=== PATIENT | male | born 1955 | race Caucasian/White ===

== ENCOUNTER 2020-04-28 17:34 | Outpatient (CLI) | payer MEDICARE, SELFPAY ==
--- NOTE | ~2020-04-28 | US_ITS ---
EXAMINATION: US venous doppler LE RT DATE: 04/28/2020 18:37 INDICATION: Right lower limb swelling TECHNIQUE: Tam scale images without and with compression and Doppler images of the right lower extre mity veins were obtained. COMPARISON: None FINDINGS: The right common femoral vein, profunda femoral vein, femoral vein, popliteal vein, peronea l trunk, and posterior tibial veins are patent. There is superficial thrombosis in the greater saphen ous vein. IMPRESSION: 1. No evidence of deep venous thrombosis. Superficial thrombosis in the greater saphenous vein. Reviewed, dictated and finalized at location A. ATION COORDINATOR
[2020-04-28 18:13] LABS: Hematocrit 43.7 % (42.0-52.0); Hemoglobin 14.6 g/dL (14.0-18.0); Mean Corpuscular HGB Conc 33.4 g/dl (32-36); Mean Corpuscular Hemoglobin 28.7 pg (26-34); Mean Platelet Volume 10.7 fl (7.4-10.4); Platelet Count Result 154 k/mm3 (150-375); Red Blood Count 5.08 M/mm3 (4.6-6.20); Red Cell Distribution Width 13.8 % (11.5-14.5); White Blood Count 6.7 K/mm3 (4.5-10.0)
[2020-04-28 18:25] LABS: Alanine Aminotransferase 29 U/L (4-50); Albumin Level 4.7 g/dL (3.5-5.1); Alkaline Phosphatase 92 U/L (38-126); Anion Gap 9 mmol/L (8-16); Aspartate Amino Transferase 36 U/L (17-59); Bilirubin,Total 0.4 mg/dL (0.2-1.3); Blood Urea Nitrogen 20 mg/dL (9-20); Calcium 9.9 mg/dL (8.4-10.2); Carbon Dioxide 26 mmol/L (22-30); Chloride 103 mmol/L (98-107); Estimated Glomerular Filt Rate > 60; Glucose 96 mg/dL (75-110); Potassium 4.3 mmol/L (3.4-5.0); Sodium 138 mmol/L (137-145)
[2020-04-28 18:31] LABS: D Dimer 1.27 ug/mL (<0.48)
== END 2020-04-28 17:35 | disposition home or self-care (01) ==
PROVIDERS: PCP Internal Medicine; Visit Provider Internal Medicine
DX: R22.41 Localized swelling, mass and lump, right lower limb (principal)
CPT/HCPCS: 36415; 80053; 85027; 85380; 87040; 93971

== ENCOUNTER 2020-04-28 19:16 | Emergency (ER) | payer MEDICARE, SELFPAY ==
[2020-04-28 19:23] VITALS: BP 147/87; PULSE 72; RESP 18; TEMP 35.8; O2SAT 100
--- NOTE | 2020-04-28 20:37 | ED.GENADULT ---
HPI - General Adult General Chief complaint: Extremity Injury, Lower Stated complaint: rt leg pain and imaging sent here by ct/pcp Time Seen by Provider: 04/28/20 20:08 Source: patient History of Present Illness HPI narrative: Patient is a 64 y/o male complaining of right lower leg pain starting 2 days ago. He describes his pain as thumb tacks and rates it as 3/10. He states that pain is worse with he lowers his leg. There is no pain radiation. He has no chest pain or SOB. He was seen by Dr. Richards earlier today. He had doppler done which showed super vein thrombosis of greater saphenous vein. He was directed to ED to receive a Lovenox shot by Dr. Richards. He had already received Rx for antibiotics from Dr. Richards and he has appointment to see Dr. Richards again at 8:00 AM tomorrow. Related Data Home Medications Medication Instructions Recorded Confirmed amoxicillin-pot clavulanate tablet 04/28/20 cetirizine 20 mg PO DAILY 04/28/20 coenzyme Q10 [Co Q-10] 10 mg PO ONCE 04/28/20 levofloxacin 04/28/20 Allergies Allergy/AdvReac Type Severity Reaction Status Date / Time No Known Allergies Allergy Verified 04/28/20 19:29 Review of Systems Constitutional: Constitutional: Denies chills, Denies fever(s), Denies headache(s) and Denies weakness Eyes: Eyes: Denies blurry vision ENT: Denies headache(s) and Denies neck pain Cardiovascular: Cardiovascular: Denies chest pain and Denies dyspnea Respiratory: Respiratory: Denies cough and Denies dyspnea Gastrointestinal: Gastrointestinal: Denies abdominal pain, Denies diarrhea, Denies nausea and Denies vomiting Genitourinary: Genitourinary: Denies hematuria and Denies dysuria Musculoskeletal: Musculoskeletal: Reports as per HPI, Denies back pain, Denies neck pain and Reports other (right leg pain) Neurologic: Denies headache(s) and Denies weakness [facility] Social History Social History Gender identity (if verbalized by the patient): Male Exam Const: General: no acute distress and well developed Orientation/consciousness: oriented to person, oriented to place, oriented to time and patient oriented x3 HENMT: Head: normocephalic Ears: external ears normal General nose exam: Normal external nose present Eyes: General: appearance normal, both eyes and all related structures Conjunctivae: conjunctivae normal Neck: Neck: normal visual inspection and full ROM Chest: Chest palpation & inspection: normal inspection of the chest and no tenderness Resp: Effort & Inspection: normal respiratory effort Auscultation: clear to auscultation bilaterally Cardio: Rate: regular rate Rhythm: regular rhythm GI: GI Palp: No abdominal tenderness and Yes Soft to palpation Skin: General skin exam: turgor normal and erythema (right lower leg) Neuro: General: oriented to person, oriented to place, oriented to time and patient oriented x3 Cognition (Neuro): normal cognition Extrem: General: normal to inspection, full ROM and no pedal edema Right lower extremity: edema and lower leg Details: erythema Psych: Appearance: grossly normal Mental Status: mental status grossly normal Affect: normal affect Course Vital Signs Vital signs: Vital Signs Temperature 35.8 C L 04/28/20 19:23 Pulse Rate 72 04/28/20 19:23 Respiratory Rate 18 04/28/20 19:23 Blood Pressure 147/87 H 04/28/20 19:23 Pulse Oximetry 100 04/28/20 19:23 Temperature 35.8 C L 04/28/20 19:23 Pulse Rate 72 04/28/20 21:08 Respiratory Rate 16 04/28/20 21:08 Blood Pressure 138/76 04/28/20 21:08 Pulse Oximetry 94 04/28/20 21:08 Medical Decision Making Vital Signs Vital Signs: Vital Signs Temperature 35.8 C L 04/28/20 19:23 Pulse Rate 72 04/28/20 19:23 Respiratory Rate 18 04/28/20 19:23 Blood Pressure 147/87 H 04/28/20 19:23 Pulse Oximetry 100 04/28/20 19:23 Temperature 35.8 C L 04/28/20 19:23 Pulse Rate 72 04/28/20
[2020-04-28] MEDS: ENOXAPARIN 40 MG/0.4 ML SYRINGE SUB-Q (21:00)
[2020-04-28 21:08] VITALS: BP 138/76; PULSE 72; RESP 16; O2SAT 94
== END 2020-04-28 21:10 | disposition home or self-care (01) ==
PROVIDERS: Emergency Provider Emergency Medicine; PCP Internal Medicine
DX: I82.811 Embolism and thrombosis of superficial veins of right lower extremity (principal)
CPT/HCPCS: 36415; 80053; 85027; 85380; 87040; 93971; 99283; J1650

== ENCOUNTER 2020-11-12 08:26 | Outpatient (CLI) | payer MEDICARE, SELFPAY ==
--- NOTE | ~2020-11-12 | MR_ITS ---
EXAMINATION: MR IAC wo/w con EXAM DATE: 11/12/2020 10:22 INDICATION: H91.92 - Unspecified hearing loss, left ear. TECHNIQUE: Multi-sequential, multiplanar MR images of the brain, brainstem, internal auditory canals were obtained without contrast. Whole brain sagittal T1, axial diffusion, gradient echo (T2*), T1, T 2, FLAIR sequences obtained. High resolution coronal 3-D FIESTA, coronal T1 FSE, axial T1 FSPGR of t he internal auditory canals. Patient was then injected with 20 cc Multihance contrast intravenously. Postcontrast axial and coronal T1 weighted whole brain, axial and coronal high resolution T1 IAC seq uences obtained. There is no prior study for comparison. FINDINGS: No evidence of mastoid or middle ear opacification. The 7th/8th cranial nerve complexes a re symmetric, normal in course and caliber. No cerebellopontine angle masses. Posterior fossa unrem arkable. Mild microangiopathy and sulcal prominence, atrophy. There is a left-sided choroidal fissure cyst. Th ere are no areas of restricted diffusion to suggest acute infarction. There is no acute hemorrhage s een on the T2*, a hemosiderin sensitive sequence. No intraparenchymal brain mass. The ventricles are normal in size. There are no extra-axial collections. Flow voids are seen in the cerebral arteries on the T2-weighted sequences consistent with their expected patency. The orbits are unremarkable. Soft tissue is unremarkable. IMPRESSION: 1. Unremarkable brain/IAC MRI examination. Reviewed, dictated and finalized at location B.
[2020-11-12 09:20] LABS: Estimated Glomerular Filt Rate > 60
== END 2020-11-12 08:27 | disposition home or self-care (01) ==
LOC: ANHIMG 08:30
PROVIDERS: PCP Internal Medicine; Visit Provider Otolaryngology
DX: H91.92 Unspecified hearing loss, left ear (principal); H93.12 Tinnitus, left ear; H91.8X9 Other specified hearing loss, unspecified ear
CPT/HCPCS: 70553; A9577

== ENCOUNTER 2023-03-02 16:29 | Outpatient (CLI) | payer MEDICARE, SELFPAY ==
--- NOTE | ~2023-03-02 | XR_ITS ---
EXAMINATION: XR chest 2V DATE: 03/02/2023 16:57 INDICATION: Cough. Diarrhea. TECHNIQUE: Frontal and lateral views of the chest were obtained on 3 radiographs. COMPARISON: Chest 2 views 10/11/2012 FINDINGS: There is mild scarring in left lower lung zone. No pleural effusion or pneumothorax. The he art size is normal. IMPRESSION: 1. Mild scarring in left lower lung zone. Reviewed, dictated and finalized at location E. ER SOFTWARE ENGINEER
[2023-03-02 16:53] LABS: Basophils Absolute Auto 0.03 K/mm3 (0.00-0.10); Basophils Percent Auto 0.5 % (0.0-1.0); Eosinophils Absolute Auto 0.15 K/mm3 (0.02-0.50); Eosinophils Percent Auto 2.4 % (1.0-6.0); Hematocrit 42.7 % (37.0-46.0); Immature Granulocyte Absolute 0.02 K/mm3 (0.00-0.00); Immature Granulocyte Percent A 0.3 % (0.0-0.0); Lymphocytes Absolute Auto 1.74 K/mm3 (1.10-4.50); Lymphocytes Percent Auto 27.8 % (18.0-42.0); Mean Corpuscular HGB Conc 32.8 g/dL (32.0-36.0); Mean Corpuscular Hemoglobin 29.9 pg (27.0-31.0); Mean Platelet Volume 10.7 fl (8.7-11.0); Monocytes Absolute Auto 0.56 K/mm3 (0.10-0.90); Monocytes Percent Auto 8.9 % (2.0-11.0); Neutrophils Absolute Auto 3.8 K/mm3 (1.7-7.2); Neutrophils Percent Auto 60.1 % (50.0-70.0); Platelet Count Result 151 K/mm3 (150-420); Red Blood Count 4.69 M/mm3 (4.70-6.10); White Blood Count 6.3 K/mm3 (4.8-10.8)
[2023-03-02 17:45] LABS: Alanine Aminotransferase 36 U/L (16-63); Alkaline Phosphatase 108 U/L (46-116); Anion Gap 9 mmol/L (8-16); Aspartate Amino Transferase 24 U/L (15-37); Bilirubin,Total 0.5 mg/dL (0.00-1.00); Blood Urea Nitrogen 20 mg/dL (7-18); Calcium 9.3 mg/dL (8.5-10.1); Carbon Dioxide 30 mmol/L (21-32); Chloride 99 mmol/L (98-108); Estimated Glomerular Filt Rate > 60; Free T3 2.75 pg/mL (2.18-3.98); Free T4 Free Thyroxine 0.94 ng/dL (0.76-1.46); Glucose 86 mg/dL (70-99); Osmolality Calculated 287 mOsm/kg (285-295); Potassium 4.2 mmol/L (3.5-5.1); Sodium 138 mmol/L (136-145); Thyroid Stimulating Hormone 3.33 uIU/mL (0.36-3.74); Total Protein 6.8 g/dL (6.4-8.2)
[2023-03-02 18:02] LABS: Erythrocyte Sedimentation Rate 18 mm/hr (0-20)
[2023-03-04 12:32] LABS: Immunoglobulin A 134 mg/dL (70-320); TTG IGA AB <1.0 U/mL (<15.0)
== END 2023-03-02 16:30 | disposition home or self-care (01) ==
LOC: CHSLAB 16:30
PROVIDERS: PCP Internal Medicine; Visit Provider Internal Medicine
DX: R05.9 Cough, unspecified (principal); R19.7 Diarrhea, unspecified; R91.8 Other nonspecific abnormal finding of lung field
CPT/HCPCS: 36415; 71046; 80053; 82784; 83516; 84439; 84443; 84481; 85025; 85652

== ENCOUNTER 2023-03-03 11:06 | Outpatient (CLI) | payer MEDICARE, SELFPAY ==
[2023-03-07 06:18] LABS: Fecal Fat, Ql Normal (Normal)
== END 2023-03-03 11:07 | disposition home or self-care (01) ==
PROVIDERS: PCP Internal Medicine; Visit Provider Internal Medicine
DX: R19.7 Diarrhea, unspecified (principal); R05.9 Cough, unspecified
CPT/HCPCS: 82705; 87045; 87177; 87209; 87324; 87427; 87449

== ENCOUNTER 2024-05-01 14:04 | Outpatient (CLI) | payer MEDICARE, SELFPAY ==
--- NOTE | ~2024-05-01 | XR_ITS ---
XR elbow LT min 3V Ordering provider: Pablo Richards MD History: . L Elbow Swelling . Comparison: None. FINDINGS: BONES: No acute fracture or dislocation. Ossification near to the medial and lateral humeral condyles which may be ligamentous ossification. JOINT SPACES: Normal. SOFT TISSUES: Normal. No definite joint effusion. IMPRESSION: No acute osseous abnormality left elbow. Reviewed, dictated and finalized at location A. PROCESSING SCIENTIST
--- OUTSIDE RECORDS SUMMARY | 2024-05-01 16:22 | XMS_ITS | Clinical Summary ---
Author Organization [facility] [address] Address [address] [place] [id number] Care Team Providers Care Aerodynamics Professor Name Role Phone Pablo Richards MD Primary Care Provider [phone] Allergies No known active allergies Medications aspirin 325 mg tablet Take 325 mg by mouth daily. Active coenzyme Q10 100 mg capsule Take 200 mg by mouth daily 200 mg in the morning and 100 mg in the evening. Active Active Problems Problem Noted Date Diagnosed Date Personal history of colonic polyps 03/26/2021 Overview (03/26/2021): Added automatically from request for surgery [id number] Encounter for screening colonoscopy 03/26/2021 Overview (03/26/2021): Added automatically from request for surgery [id number] Varicose vein of leg 03/14/2017 Assessment & Plan (05/25/2017 3:05 PM CDT): He has a few residual left calf tributary veins and one left calf isotope technician vein with reflux following EVLT of the left GSV. He wants the residual veins treated in August. We'll arrange a follow-up venous Doppler prior to phlebectomy and proceed in as planned in August. If there is evidence of a isotope technician vein with reflux in August, we'll plan to remove it during phlebectomy. Assessment & Plan (03/14/2017 4:05 PM POWER PLANT ELECTRICIAN): There is reflux in a large left GSV, reflux in tributary veins and a isotope technician vein. We discussed definitive therapy with a combination of EVLT, phlebectomy and isotope technician vein ligation (as needed following EVLT). He wants to proceed. We will submit to his insurance company and plan the procedures once pre authorization has been provided. He will continue Eliquis until a few days prior to EVLT at which time we will stop it and not plan to re-start it unless he develops complications with DVT. Additionally, we asked him to start wearing 20-30mmHg knee high support hose on a daily basis. He was given a prescription for 30-40mmHg thigh high support hose to wear following the vein procedures. Phlebitis 03/14/2017 Assessment & Plan (03/14/2017 3:50 PM POWER PLANT ELECTRICIAN): He has a sub-acute left medial calf phlebitis that won't require joint terminal attack controller anticoagulation however we've asked him to continue Eliquis to prevent phlebitis until we can definitively treat his venous reflux. Surgical History Surgery Date Site/Laterality Comments VASECTOMY COLONOSCOPY 01/29/2016 - 02/28/2016 POLYPECTOMY Medical History Medical History Date Comments Varicose veins of left leg with edema wears compression hoses on both legs Colon polyp Family History Medical History Relation Name Comments Colon cancer Mother Relation Name Status Comments Mother Social History Tobacco Use Types Packs/Day Years Used Date Smoking Tobacco: Never Smokeless Tobacco: Never AUDIT-C Answer Date Recorded Q1: How often do you have a drink containing alc ohol? Monthly or less 05/11/2021 Q2: How many drinks containi ng alcohol do you have on a typical day when you are drinking? 1 or 2 05/11/2021 Q3: How often do you have si x or more drinks on one occasion? Less than monthly 05/11/2021 Personal Safety Answer Date Recorded Getting School Help Needed Not on file 05/13 Sex and Gender Information Value Date Recorded Sex Assigned at Not on file Legal Sex Male 2:35 PM POWER PLANT ELECTRICIAN Gender Identity Not on file Sexual Orientation Not on file Obstetrics History Last Filed Vital Signs Vital Sign Reading Time Taken Comments Blood Pressure 131/80 05/12/2021 11:42 AM CDT Pulse 65 05/12/2021 11:42 AM CDT Temperature 36.9 C (98.4 F) 05/12/2021 11:42 AM CDT Respiratory Rate 20 05/12/2021 11:42 AM CDT Oxygen Saturation 100% 05/12/2021 11:42 AM CDT Inhaled Oxygen Concentration - - Weight 102.1 kg (225 lb) 05/12/2021 9:05 AM CDT Height 190.5 cm (6' 3 ) 05/12/2021 9:05 AM CDT Body Mass Index 28.12 05/12/2021 9:05 AM CDT Plan of Treatment Health Maintenance Due Date Last Done Comments Depression Screening 1955 Fall Risk Assessment 1955 Hepatitis C Screening 1955 Hepatitis B Screening 08/07/1971 Abdominal Aortic Aneurysm (A AA) Screen 2018 Well Visit 65+ 2018 Influenza Vaccine (#1) 2023 12/21/2019, 2018 DTaP/Tdap/Td Vaccine (2 - Td or Tdap) 03/03/2030 03/03/2020 Colon Cancer Screening-Colonoscopy 05/13/2031 05/12/2021, 01/29/2016, 01/29/2016, Additional history exists Zoster Vaccine Completed 02/22/2018, 09/29, 02/05/2014 Pneumococcal vaccine 65+ Completed 02/16/2019, 10/2015 Colon Cancer Screening-CT Colonography Discontinued 05/12/2021, 01/29/2016, 01/29/2016, Additional history exists Colon Cancer Screening-DNA Stool Discontinued 05/12/2021, 01/29/2016, 01/29/2016, Additional history exists Colon Cancer Screening-FIT Discontinued 05/12, 01/29/2016, 01/29/2016, Additional history exists Colon Cancer Screening-Sigmoidoscopy Discontinued 05/12/2021, 01/29/2016, 01/29/2016, Additional history exists Procedures Procedure Name Priority Date/Time Associated Diagnosis Comments COLONOSCOPY 05/12/2021 9:24 AM CDT from Last 3 Months or Most Recently Relevant to Health Maintenance Results * COLONOSCOPY (05/12/2021 9:24 AM CDT) Anatomical Region Laterality Modality Other Narrative Procedure Note Marty Clements MD - 05/12/2021 9:24 AM CDT [facility] Patient Name: Cortes Villa Procedure Date: 05/12/2021 9:24 AM Date of : 1955 Admit Type: Outpatient Age: 65 Gender: Male Attending MD: Marty Clements M.D. Room: [facility] RO[facility] 2 Note Status: Finalized Patient Profile: Refer to note in patient chart for documentation of history and physical. Procedure: Colonoscopy Indications: High risk colon cancer surveillance: Personalhistory of colonic polyps, Last colonoscopy: January2016 Referring MD: Pablo Richards MD Providers: Marty Clements M.D. Impression: - Hemorrhoids found on perianal exam. - Diverticulosis in the sigmoid colon and in the descending colon. - The examination was otherwise normal. - No specimens collected. Recommendation: - Discharge patient to home. - Resume previous diet. - Continue present medications. - Repeat colonoscopy in 5 years for surveillance. - Return to primary care physician as previously scheduled. Medicines: Propofol per Anesthesia Complications: No immediate complications. Estimated Blood Loss: Estimated blood loss: none. Procedure: Pre-Anesthesia Assessment: - This assessment was completed [Time ofAssessment] prior to the administration of sedation. The benefits, risks and alternatives of theprocedure and sedation were discussed and informed consentwas obtained. All questions were answered. Please referto the signed informed consent document in the medical record. The bowel preparation used was Miralax via single dose instruction. The bowel preparation used was bisacodyl tablets via single dose instruction.The scope was passed under direct vision. TheColonoscope [id number] was introduced through the anus and advanced to the the cecum, identified by appendiceal orifice and ileocecal valve. The colonoscopy was performed without difficulty. The patient tolerated the procedure well. The qualityof the bowel preparation was adequate to identifypolyps 6 mm and larger in size. The ileocecal valve, appendiceal orifice, and rectum werephotographed. Findings: Hemorrhoids were found on perianal exam. Multiple small and large-mouthed diverticula were found in thesigmoid colon and descending colon. The exam was otherwise without abnormality. Electronically signed by Marty Clements M.D. Marty Clements M.D. 05/12/2021 11:06:47 AM Number of Addenda: 0 Note Initiated On: 05/12/2021 9:24 AM Procedure Code(s): --- Professional --- G0105, Colorectal cancer screening; colonoscopy on individual at high risk Diagnosis Code(s): --- Professional --- K57.30, Diverticulosis of large intestine without perforation orabscess without bleeding K64.9, Unspecified hemorrhoids Z86.010, Personal history of colonic polyps CPT copyright 2020 [employer]. All rights reserved. The codes documented in this report are preliminary and upon cutting torch operator reviewmay be revised to meet current compliance requirements. Recognized by the [employer] for promoting quality in endoscopy us Marty Clements MD ENDOSCOPY PROCEDURES Final Re sult from Last 3 Months or Most Recently Relevant to Health Maintenance [place] [address] [employer] [place] [place] [address] Advance Directives For more information, please contact: [phone] * Full Code (Latest Code Status on File) Date Activated Date Inactivated Comments 05/12/2021 8:57 AM 05/12/2021 4:11 PM * Full Code Date Activated Date Inactivated Comments 05/12/2021 8:57 AM 05/12/2021 8:57 AM Care Teams Aerodynamics Professor Relationship Specialty Start Date End Date Pablo Richards MD [address] [place] [address] PCP - General Internal Medicine 03/14/17
--- OUTSIDE RECORDS SUMMARY | 2024-05-01 16:22 | XMS_ITS | Referral Summary ---
Author Organization [facility] [address] Address [address] [place] [id number] Care Team Providers Care Retail Sales Specialist Name Role Phone Pablo Richards MD Primary Care Provider [phone] Allergies No known active allergies Medications aspirin 325 mg tablet Take 325 mg by mouth daily. Active coenzyme Q10 100 mg capsule Take 200 mg by mouth daily 200 mg in the morning and 100 mg in the evening. Active Active Problems Problem Noted Date Diagnosed Date Personal history of colonic polyps 03/26/2021 Overview (03/26/2021): Added automatically from request for surgery [id number] Encounter for screening colonoscopy 03/26/2021 Overview (03/26/2021): Added automatically from request for surgery [id number] Varicose vein of leg 03/14/2017 Assessment & Plan (05/25/2017 3:05 PM CDT): He has a few residual left calf tributary veins and one left calf cnc laser operator vein with reflux following EVLT of the left GSV. He wants the residual veins treated in August. We'll arrange a follow-up venous Doppler prior to phlebectomy and proceed in as planned in August. If there is evidence of a cnc laser operator vein with reflux in August, we'll plan to remove it during phlebectomy. Assessment & Plan (03/14/2017 4:05 PM CAR FRAMER): There is reflux in a large left GSV, reflux in tributary veins and a cnc laser operator vein. We discussed definitive therapy with a combination of EVLT, phlebectomy and cnc laser operator vein ligation (as needed following EVLT). He [...] 03/14/2017 Assessment & Plan (03/14/2017 3:50 PM CAR FRAMER): He has a sub-acute left medial calf phlebitis that won't require [facility]p anticoagulation however we've asked him to continue Eliquis to prevent phlebitis until we can definitively treat his venous reflux. Social History Tobacco Use Types Packs/Day Years [...] on file Legal Sex Male 2:35 PM CAR FRAMER Gender Identity Not on file Sexual Orientation Not on file Last Filed Vital Signs Vital Sign Reading [...] 05/12/2021 9:05 AM CDT Plan of Treatment Not on file Procedures Procedure Name Priority Date/Time Associated Diagnosis Comments COLONOSCOPY 05/12/2021 9:24 AM CDT from Last 3 Months or Most Recently Relevant to Health Maintenance Results * COLONOSCOPY (05/12/2021 9:24 AM CDT) Anatomical Region Laterality Modality Other Narrative Procedure Note Marty Clements MD - 05/12/2021 9:24 AM CDT [facility] Patient Name: Cortes Villa Procedure Date: 05/12/2021 9:24 AM Date of : 1955 Admit Type: Outpatient Age: 65 Gender: Male Attending MD: Marty Clements M.D. Room: [facility]COPY ROOM 2 Note Status: Finalized Patient Profile: Refer to note in patient chart for documentation of history and physical. Procedure: Colonoscopy Indications: High risk colon cancer surveillance: Personalhistory of colonic polyps, Last colonoscopy: January2016 Referring MD: Pablo Richards MD Providers: Marty R. Starr, M.D. Impression: - Hemorrhoids found on perianal [...] scope was passed under direct vision. TheColonoscope [id number] was introduced through the anus and advanced [...] history of colonic polyps CPT copyright 2020 [employer]. All rights reserved. The codes documented in this report are preliminary and upon machine biller reviewmay be revised to meet current compliance requirements. Recognized by the [employer] for promoting quality in endoscopy Marty Clements MD ENDOSCOPY PROCEDURES Final Re sult from Last 3 Months or Most Recently Relevant to Health Maintenance Insurance [employer] OPEN ACCESS [employer] MEDICARE Advance Directives For more information, please contact: [phone] * Full Code (Latest Code Status on File) Date Activated Date Inactivated Comments 05/12/2021 8:57 AM 05/12/2021 4:11 PM * Full Code Date Activated Date Inactivated Comments 05/12/2021 8:57 AM 05/12/2021 8:57 AM Care Teams Retail Sales Specialist Relationship Specialty Start Date End Date Pablo Richards MD [address] [place] [address] PCP - General Internal Medicine 03/14/17
== END 2024-05-01 14:05 | disposition home or self-care (01) ==
PROVIDERS: PCP Internal Medicine; Visit Provider Internal Medicine
DX: M79.89 Other specified soft tissue disorders (principal)
CPT/HCPCS: 73080

== ENCOUNTER 2024-05-16 09:07 | Outpatient (CLI) | payer MEDICARE, SELFPAY ==
--- NOTE | ~2024-05-16 | US_ITS ---
EXAM: Focused ultrasound examination of the soft tissues of the left elbow HISTORY: L Olecranon Bursitis TECHNIQUE: Sonographic evaluation of the soft tissues of the left elbow were performed assessing lazaro scale appearance and color Doppler flow. COMPARISON: Reference is made to plain film evaluation of the left elbow dated 05/01/2024. FINDINGS: Sonographic evaluation of the soft tissues of the left elbow demonstrate irregular hypoechoic foci wi thin the distal most attachment of the triceps muscle representing either edema versus an additional source of fluid. Sonographic evaluation of the remainder of the left elbow demonstrates benign fibrofatty and fibromus cular elements without a cystic or solid lesion of concern. IMPRESSION: Abnormal echogenicity within the distal most attachment of the triceps muscle for which MRI of the le ft elbow would provide additional information, if the patient is clinically able. Reviewed, dictated and finalized at location A. IMPRESSION: Abnormal echogenicity within the distal most attachment of the triceps muscle f or which MRI of the left elbow would provide additional information, if the pat ient is clinically able.
--- OUTSIDE RECORDS SUMMARY | 2024-05-16 09:56 | XMS_ITS | Referral Summary ---
Author Organization [facility] [place] [address] Address [address] [place] [id number] Care Team Providers Care Quality Control Head Name Role Phone Pablo Richards MD Primary Care Provider [phone] Allergies No known active allergies Medications aspirin 325 mg tablet Take 325 mg by mouth daily. Active coenzyme Q10 100 mg capsule Take 200 mg by mouth daily 200 mg in the morning and 100 mg in the evening. Active Active Problems Problem Noted Date Diagnosed Date Personal history of colonic polyps 03/26/2021 Overview (03/26/2021): Added automatically from request for surgery [id number] Encounter for screening colonoscopy 03/26/2021 Overview (03/26/2021): Added automatically from request for surgery [id number] Varicose vein of leg 03/14/2017 Assessment & Plan (05/25/2017 3:05 PM CDT): He has a few residual left calf tributary veins and one left calf science center display builder vein with reflux following EVLT of the left GSV. He wants the residual veins treated in August. We'll arrange a follow-up venous Doppler prior to phlebectomy and proceed in as planned in August. If there is evidence of a science center display builder vein with reflux in August, we'll plan to remove it during phlebectomy. Assessment & Plan (03/14/2017 4:05 PM MILLING SUPERVISOR): There is reflux in a large left GSV, reflux in tributary veins and a science center display builder vein. We discussed definitive therapy with a combination of EVLT, phlebectomy and science center display builder vein ligation (as needed following EVLT). He [...] 03/14/2017 Assessment & Plan (03/14/2017 3:50 PM MILLING SUPERVISOR): He has a sub-acute left medial calf phlebitis that won't require custodial anticoagulation however we've asked him to continue [...] on file Legal Sex Male 2:35 PM MILLING SUPERVISOR Gender Identity Not on file Sexual Orientation [...] CDT Plan of Treatment Not on file Insurance [employer] OPEN ACCESS [employer] MEDICARE Advance Directives For more information, please contact: [phone] * Full Code (Latest Code Status on File) Date Activated Date Inactivated Comments 05/12/2021 8:57 AM 05/12/2021 4:11 PM * Full Code Date Activated Date Inactivated Comments 05/12/2021 8:57 AM 05/12/2021 8:57 AM Care Teams Quality Control Head Relationship Specialty Start Date End Date Pablo Richards MD [address] [place] [address] PCP - General Internal Medicine 03/14/17
--- OUTSIDE RECORDS SUMMARY | 2024-05-16 09:56 | XMS_ITS | Clinical Summary ---
Author Organization [facility] [place] [address] Address [address] [place] [phone] Care Team Providers Care Activity Assistant Name Role Phone Pablo Richards MD Primary Care Provider [phone] Allergies No known active allergies Medications aspirin 325 mg tablet Take 325 mg by mouth daily. Active coenzyme Q10 100 mg capsule Take 200 mg by mouth daily 200 mg in the morning and 100 mg in the evening. Active Active Problems Problem Noted Date Diagnosed Date Personal history of colonic polyps 03/26/2021 Overview (03/26/2021): Added automatically from request for surgery [id number] Encounter for screening colonoscopy 03/26/2021 Overview (03/26/2021): Added automatically from request for surgery [id number] Varicose vein of leg 03/14/2017 Assessment & Plan (05/25/2017 3:05 PM CDT): He has a few residual left calf tributary veins and one left calf sand cutting machine operator vein with reflux following EVLT of the left GSV. He wants the residual veins treated in August. We'll arrange a follow-up venous Doppler prior to phlebectomy and proceed in as planned in August. If there is evidence of a sand cutting machine operator vein with reflux in August, we'll plan to remove it during phlebectomy. Assessment & Plan (03/14/2017 4:05 PM SHEET ROCK HANGER): There is reflux in a large left GSV, reflux in tributary veins and a sand cutting machine operator vein. We discussed definitive therapy with a combination of EVLT, phlebectomy and sand cutting machine operator vein ligation (as needed following EVLT). [...] 03/14/2017 Assessment & Plan (03/14/2017 3:50 PM SHEET ROCK HANGER): He has a sub-acute left medial calf phlebitis that won't require [facility] anticoagulation however we've asked him to continue [...] on file Legal Sex Male 2:35 PM SHEET ROCK HANGER Gender Identity Not on file Sexual Orientation [...] Plan of Treatment [place] [address] [employer] [place] [address] [place] [address] Advance Directives For more information, please contact: [phone] * Full Code (Latest Code Status on File) Date Activated Date Inactivated Comments 05/12/2021 8:57 AM 05/12/2021 4:11 PM * Full Code Date Activated Date Inactivated Comments 05/12/2021 8:57 AM 05/12/2021 8:57 AM Care Teams Activity Assistant Relationship Specialty Start Date End Date Pablo Richards MD [address] [id number] PCP - General Internal Medicine 03/14/17
--- OUTSIDE RECORDS SUMMARY | 2024-05-16 09:56 | XMS_ITS | Continuity of Care Document ---
Author Organization [facility] Address [address] [place] [address] Phone Care Team Providers Care Cashier Checker Name Role Phone Sloane Lai Unavailable Unavailable Advance Directives Directive Yes / No Effective Date File Name No Information Encounters Encounter Description Practice Location Reason(s) For Visit Diagnoses Date Provider Providers Copied on Encounter [facility], [address], [place], [place], [id number], [place] tel:[phone] [facility] No Information Dec-0 2-199 9 Joelle Anton. [address] , [address], [place], [address], [place]. tel:[phone] Family History Family Member Type Diagnosis Age At Onset No Information Payers Payer name Insurance type Covered constitution party ID Authoriza tion(s) No Information Social [...]
== END 2024-05-16 09:08 | disposition home or self-care (01) ==
PROVIDERS: PCP Internal Medicine; Visit Provider Internal Medicine
DX: M70.22 Olecranon bursitis, left elbow (principal)
CPT/HCPCS: 76882

== ENCOUNTER 2024-12-25 09:31 | Outpatient (CLI) | payer MEDICARE, SELFPAY ==
--- OUTSIDE RECORDS SUMMARY | 1999-01-29 04:00 | XMS_ITS | Continuity of Care Document ---
Author Organization [facility] Address [address] [place] [address] Phone Care Team Providers Care Rf Manager Name Role Phone Sloane Lai Unavailable Unavailable Advance Directives Directive Yes / No Effective Date File Name No Information Encounters Encounter Description Practice Location Reason(s) For Visit Diagnoses Date Provider Providers Copied on Encounter [facility], [address], [place], [place], [id number], [place] tel:[phone] [facility] No Information Dec-0 2-199 9 Joelle Anton. [address] , [address], [place], [address], [place]. tel:[phone] Family History Family Member Type Diagnosis Age At Onset No Information Payers Payer name Insurance type Covered alliance party ID Authoriza tion(s) No Information Social History Type Description Quantity Date Captured Comments Sex Male Smoking Status No Information Chief Complaint And Reason For Visit No Information Reason For Referral Reason For Referral No Information History Of Present Illness Encounter Date Complaint History Of Prese nt Illness No Information Functional Status Date Functional Assessmen t No Information Instructions Date Instruction Additional Infor mation No Information Assessments Type Assessment Date No Information Patient Care Teams Name Effective Dates (start - stop) Status Members No Information
[2024-12-25 09:59] LABS: Add Urine Microscopic? NO; Appearance Urine Clear (Clear); Glucose Urine UA Negative (Negative); Hematocrit 42.1 % (37.0-46.0); Hemoglobin 13.8 g/dL (12.4-15.3); Leukocyte Esterase Ur Negative LEU/UL (Negative); Mean Corpuscular HGB Conc 32.8 g/dL (32-36); Mean Corpuscular Hemoglobin 28.8 pg (27.0-31.0); Mean Corpuscular Volume 87.7 fL (78.0-102.0); Nitrate Urine Negative (Negative); Platelet Count Result 174 K/mm3 (150-420); Red Blood Count 4.80 M/mm3 (4.70-6.10); Specific Grav Ur 1.010 (1.010-1.020); White Blood Count 5.0 K/mm3 (4.8-10.8)
--- OUTSIDE RECORDS SUMMARY | 2024-12-25 10:29 | XMS_ITS | Clinical Summary ---
Author Organization [facility] [place] [address] Address [address] [place] [phone] Care Team Providers Care Academic Affairs Assistant Name Role Phone Pablo Richards MD Primary Care Provider [phone] Allergies No known active allergies Medications aspirin 325 mg tablet Take 325 mg by mouth daily. Active coenzyme Q10 100 mg capsule Take 200 mg by mouth daily 200 mg in the morning and 100 mg in the evening. Active Active Problems Problem Noted Date Diagnosed Date Personal history of colonic polyps 03/26/2021 Overview (03/26/2021): Added automatically from request for surgery [id number] Encounter for screening colonoscopy 03/26/2021 Overview (03/26/2021): Added automatically from request for surgery [id number] Varicose vein of leg 03/14/2017 Assessment & Plan (05/25/2017 3:05 PM CDT): He has a few residual left calf tributary veins and one left calf public health nurse vein with reflux following EVLT of the left GSV. He wants the residual veins treated in August. We'll arrange a follow-up venous Doppler prior to phlebectomy and proceed in as planned in August. If there is evidence of a public health nurse vein with reflux in August, we'll plan to remove it during phlebectomy. Assessment & Plan (03/14/2017 4:05 PM M1A1 TANK CREWMAN): There is reflux in a large left GSV, reflux in tributary veins and a public health nurse vein. We discussed definitive therapy with a combination of EVLT, phlebectomy and public health nurse vein ligation (as needed following EVLT). He [...] 03/14/2017 Assessment & Plan (03/14/2017 3:50 PM M1A1 TANK CREWMAN): He has a sub-acute left medial calf phlebitis that won't require termite exterminator anticoagulation however we've asked him to continue [...] on file Legal Sex Male 2:35 PM M1A1 TANK CREWMAN Gender Identity Not on file Sexual Orientation [...] 9:05 AM CDT Height 190.5 cm (6' 3) 05/12/2021 9:05 AM CDT Body Mass Index 28.12 05/12/2021 9:05 AM CDT Plan of Treatment [place] [address] [email or web address] OPEN ACCESS [place] [address] Advance Directives For more information, please contact: [phone] * Full Code (Latest Code Status on File) Date Activated Date Inactivated Comments 05/12/2021 8:57 AM 05/12/2021 4:11 PM * Full Code Date Activated Date Inactivated Comments 05/12/2021 8:57 AM 05/12/2021 8:57 AM Care Teams Academic Affairs Assistant Relationship Specialty Start Date End Date Pablo Richards MD [address] [place] [address] PCP - General Internal Medicine 03/14/17
[2024-12-25 10:30] LABS: Alanine Aminotransferase 26 U/L (6-50); Albumin Level 4.5 g/dL (3.5-5.1); Alkaline Phosphatase 87 U/L (38-126); Anion Gap 9 mmol/L (4-12); Aspartate Amino Transferase 41 U/L (17-59); Bilirubin,Total 0.8 mg/dL (0.2-1.3); Blood Urea Nitrogen 19 mg/dL (9-20); Calcium 9.8 mg/dL (8.4-10.2); Carbon Dioxide 26 mmol/L (22-30); Chloride 104 mmol/L (98-107); Cholesterol 171 mg/dL (0-200); Creatine Kinase 364 U/L (55-170); Estimated Glomerular Filt Rate > 60; Glucose 90 mg/dL (65-110); HDL Direct 54 mg/dL; Osmolality Calculated 290 mOsm/kg (285-295); Potassium 5.1 mmol/L (3.4-5.0); Sodium 139 mmol/L (137-145); Total Protein 7.6 g/dL (6.3-8.2); Triglycerides 148 mg/dL (<150)
[2024-12-25 11:00] LABS: Prostate Specific Antigen 2.4 ng/mL (< OR = 4.0)
== END 2024-12-25 09:32 | disposition home or self-care (01) ==
LOC: CHSLAB 09:33
PROVIDERS: PCP Internal Medicine; Visit Provider Internal Medicine
DX: E78.2 Mixed hyperlipidemia (principal); N39.0 Urinary tract infection, site not specified; Z12.5 Encounter for screening for malignant neoplasm of prostate
CPT/HCPCS: 36415; 80053; 80061; 81003; 82550; 84153; 85027; G0103